=== PATIENT | male | born 1980 | race Caucasian/White ===

== ENCOUNTER 2021-01-12 16:27 | Inpatient (IN) | payer SELFPAY ==
[2021-01-12 16:32] VITALS: BP 164/110; PULSE 111; RESP 14; TEMP 36.3; O2SAT 98; BMI 20.5
--- NOTE | 2021-01-12 16:38 | ECG_ITS ---
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
[2021-01-12 17:01] VITALS: RESP 18
[2021-01-12 17:09] LABS: Basophils # 0.1 10^3/uL (0.0-0.1); Eosinophils # 0.3 10^3/uL (0.0-0.8); Eosinophils % 3.6 %; Hemoglobin 13.8 g/dL (11.7-16.6); Lymphocytes # 2.2 10^3/uL (0.8-4.8); Lymphocytes % 26.9 %; Mean Corpuscular HGB Conc 34.5 g/dL (30.0-36.0); Mean Corpuscular Hemoglobin 30.5 pg (28.0-34.0); Mean Corpuscular Volume 88.3 fL (80-94); Mean Platelet Volume 11.6 fL (7.4-10.4); Monocytes # 0.8 10^3/uL (0.2-0.9); Monocytes % 9.2 %; Neutrophils # 4.82 10^3/uL (1.8-7.7); Neutrophils % 59.1 %; Nucleated Red Blood Cells % 0 %; Platelet Count 245 10^3/cmm (130-400); Red Blood Count 4.53 10^6/uL (4.1-5.3); Red Cell Distribution Width 12.9 % (12.1-15.1); White Blood Count 8.2 10^3/uL (4.0-10.0)
[2021-01-12 17:16] VITALS: RESP 18
[2021-01-12 17:38] LABS: Alanine Aminotransferase 54 U/L (0-41); Albumin Level 4.4 g/dL (3.5-5.2); Alkaline Phosphatase 65 IU/L (40-130); Anion Gap 12.6 (5-19); Aspartate Amino Transferase 48 U/L (0-40); Blood Urea Nitrogen 7 mg/dL (6-20); Calcium 9.1 mg/dL (8.5-10.5); Carbon Dioxide 27 mmol/L (22-29); Chloride 102 mmol/L (98-107); Globulin 2.6 g/dL (1.3-4.6); Glomerular Filtration Rate 108.2 mL/min (90-130); Glucose 109 mg/dL (65-115); Osmolality Calculated 285 mOsm/kg (285-295); Potassium 3.6 mmol/L (3.5-5.1); Sodium 138 mmol/L (136-145); Thyroid Stimulating Hormone 2.53 uIU/mL (0.27-4.20); Total Bilirubin 0.8 mg/dL (0.15-1.2)
[2021-01-12 17:40] LABS: Acetaminophen < 5.0 ug/mL (10-30); Alcohol Level < 10 mg/dL (0-10); Salicylate < 0.3 mg/dL (3-10)
[2021-01-12 18:06] LABS: Amphetamines Screen Urine Positive (Negative); Barbiturates Screen Urine Negative (Negative); Benzodiazepines Screen Urine Negative (Negative); Cocaine Screen Urine Negative (Negative); Opiate Screen Urine Negative (Negative); PCP Screen Urine Negative (Negative); THC Screen Urine Positive (Negative)
[2021-01-12 18:09] LABS: Add Urine Microscopic? YES; Bilirubin Urine Neg (Negative); Blood Urine 3+ (Negative); Glucose Urine UA Norm (Normal); Ketones Urine Negative (Negative); Leukocyte Esterase Urine Negative (Negative); Nitrate Urine Negative (Negative); Protein Urine Neg (Negative); Urine Appearance Clear (CLEAR); Urine Color Yellow (Yellow); Urobilinogen Urine Norm (Negative); pH Urine 6 (5-7)
[2021-01-12 18:11] LABS: RBC Urine 25-40 /hpf (0-2); Squamous Epithelial Cell Urine 0-4 /hpf (0-5)
[2021-01-12 18:12] LABS: Add Urine Culture? Yes; Bacteria Urine 1+ /hpf; Mucus Urine TRACE /hpf
[2021-01-12 19:03] LABS: Hepatitis A Antibody IgM Non-Reactive (Nonreactive); Hepatitis B Core IgM Non-Reactive (Nonreactive); Hepatitis B Surface Antigen Non-Reactive (Nonreactive); Hepatitis C Virus Antibody Non-Reactive (Nonreactive)
[2021-01-12 22:00] VITALS: BP 149/100; PULSE 109; RESP 16; TEMP 36.7; O2SAT 98
[2021-01-13 06:41] VITALS: BP 119/75; PULSE 98; RESP 18; TEMP 36.6; O2SAT 98
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
[2021-01-13 14:00] VITALS: BP 119/81; PULSE 74; RESP 16; TEMP 36.8; O2SAT 95
[2021-01-13 20:08] VITALS: BP 118/85; PULSE 68; RESP 18; TEMP 36.8; O2SAT 97
[2021-01-14 06:00] VITALS: BP 115/71; PULSE 76; RESP 18; TEMP 36.9; O2SAT 96
[2021-01-14 14:00] VITALS: BP 132/89; PULSE 97; RESP 20; TEMP 36.4; O2SAT 97
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
[2021-01-14 20:30] VITALS: BP 143/82; PULSE 76; RESP 18; TEMP 37; O2SAT 98
--- NOTE | 2021-01-15 03:45 | PC.NURSE ---
PM Assessment V/S are normal, heart/lung sounds are WNL, PT DENIES PAIN, DENIES AH/VH, DENIES SI/HI AT THIS TIME. PT IS IN THE DAYROOM EATING.
[2021-01-15 05:25] VITALS: BP 131/98; PULSE 89; RESP 18; TEMP 36.8; O2SAT 97
[2021-01-15] MEDS: ARIPiprazole 10 mg Tablet PO (08:09)
[2021-01-15 14:00] VITALS: BP 104/69; PULSE 68; RESP 18; TEMP 37; O2SAT 97
--- NOTE | 2021-01-15 16:08 | PM.NPN ---
Subjective NPU Subjective: Interval history: Continues to be in denial with regards to the consequences of his ongoing substance use and recent events creating legal issues. Denies any interval mood symptoms, denies any depressed symptoms, denies any suicidal ideation Reports some irritability but denies any homicidal ideation, denies any thoughts about harming others Denies any psychotic symptoms, denies any auditory or visual hallucinations, denies any delusions Patient reports ongoing cannabis use but denies any methamphetamine use despite discussion of his positive urine drug screen for amphetamines although he subsequently states that he did use some for working late nights Patient currently stating that he does not like there is any problem but just needs to sort things out with his family Mental Status Exam MSE Comments: Appears stated age, unshaven, unkempt hair, wearing hospital scrubs, sitting on the edge of his bed, somewhat restless, fidgety but no agitation Speech is normal rate and volume, spontaneous, fair articulation, not pressured I am fine, constricted affect, not labile Alert and oriented to person, place, time, situation Memory and concentration are fair per interview Intellectual functioning appears to be average at best based on vocabulary, interview Thought process, linear but brief, no flight of ideas, no looseness of associations Thought content, no delusions reported, does not appear to be attending to any internal stimuli, no suicidal or homicidal ideation Insight and judgment appear to be fair Vitals/I&O/Wt Last Vital Signs Temp 98.6 F 01/15/21 14:00 Pulse 68 01/15/21 14:00 Resp 18 01/15/21 14:00 BP 104/69 01/15/21 14:00 Pulse Ox 97 01/15/21 14:00 Data NPU : 01/12/21 16:58 01/12/21 16:58 A&P Assessment and plan (1) Cannabis use disorder, mild, abuse: Status: Acute (2) Methamphetamine use: Status: Acute (3) Psychosis: Status: Acute Additional A&P Information 40-year-old male with history of polysubstance abuse with urine drug screen positive for cannabis and methamphetamine presenting with paranoid delusions, homicidal ideation with threat of harm to self and others. Currently reports improving psychotic symptoms, denies any suicidal ideation, denies any homicidal ideation. Continues to have little insight into the impact of his substance use on his current situation. CONTINUE current medication, continue to monitor Continue to coordinate with oncology social work for post discharge substance counseling/treatment Involuntary Hold Information 96 Hour Hold: 96 Hour Involuntary Admission: Yes 96 Hour Hold Ending Date: 01/12/21 96 Hour Hold Ending Time: 19:17 Attestations NPU Medical Necessity Statement*: Continues require psychiatric hospitalization for observation for return of any psychotic symptoms, homicidal ideation Coding Level of Care Code Acute Senior Professional Services Consultant for joan Fwd Diagnoses Cannabis use disorder, mild, abuse F12.10 Methamphetamine use F15.10 Psychosis F29
[2021-01-15 22:00] VITALS: BP 111/65; PULSE 64; RESP 16; TEMP 36.4; O2SAT 98
[2021-01-16 06:00] VITALS: BP 86/58; PULSE 66; RESP 16; TEMP 36.4; O2SAT 97
[2021-01-16] MEDS: ARIPiprazole 10 mg Tablet PO (08:27)
--- NOTE | 2021-01-16 13:14 | PM.NDC ---
Diagnoses at Discharge Discharge Diagnosis (1) Cannabis use disorder, mild, abuse: Status: Acute (2) Methamphetamine use: Status: Acute (3) Psychosis: Status: Acute Reason for Visit Reason for Visit: 96 hour warrant/with officer Hospital Course Hospital Course Patient admitted to inpatient psychiatry unit for odd behavior which appeared to be under the influence of methamphetamine, cannabis. 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 Patient quickly reconstituted and was started on Abilify 10 mg daily with no reports of any medication side effects. Patient denied any subsequent psychotic symptoms, denied any auditory or visual hallucinations and denied any delusions. Patient also did not endorse any homicidal ideation or thoughts about harming others and had no recollection of his actions or statements prior to his admission. At no time did he demonstrate any disorganization of thoughts, speech or behavior during his hospital stay. He reported intermittent depressive symptoms mostly in the context of ongoing, acute stressors but denied any suicidal ideation or thoughts about self-harm. He participated in unit milieu and did not have any behavioral disturbances. At the time of discharge, he denied any suicidal ideation and did not appear to pose an imminent threat of harm to self or others. Low to moderate risk of harm to self or others given no current suicidal or homicidal ideation and no report of any psychiatric symptoms although patient's risk may be elevated if he continues to use illicit substances causing an abrupt, unexpected and impulsive behavior. Risk mitigation included psychiatric hospitalization for observation of any persisting psychotic symptoms, medication stabilization as well as recommending abstaining from the use of substances and alcohol. Patient was able to communicate his understanding of the need to abstain from the use of substances and alcohol as well as the need for compliance with his medication, medication management and substance counseling/treatment in order to further mitigate his risk of harm to self and others. Involuntary Hold Information 96 Hour Hold: 96 Hour Involuntary Admission: Yes 96 Hour Hold Ending Date: 01/12/21 96 Hour Hold Ending Time: 19:17 Mental Status Exam MSE Comments: Unkempt hair, unshaven, appropriately dressed in hospital scrubs, calm, cooperative, good eye contact Psychomotor activity is neither increased nor decreased, no agitation Speech is normal rate, low volume, spontaneous, clear articulation, not pressured I feel better, full range, not labile Alert and oriented to person, place, time, situation Memory and concentration appear to be intact per interview Thought process, linear, no flight of ideas, no looseness of associations Thought content, no delusions, no hallucinations, no suicidal ideation, no homicidal ideation Insight and judgment appear to be intact Discharge Data Vitals: Last Vital Signs Temp 97.6 F 01/16/21 06:00 Pulse 66 01/16/21 06:00 Resp 16 01/16/21 06:00 BP 86/58 01/16/21 06:00 Pulse Ox 97 01/16/21 06:00 Discharge Plan Discharge Patient Disposition: Home Condition: Stable Prescriptions: New aripiprazole 10 mg Tablet 10 mg PO DAILY Qty: 30 RF: 0 Discharge Orders: Discharge Order (Routine); Ordered 01/16/21 Ordered By: Mayuri Mendoza Referrals: [facility] [Outside] (Intake paperwork was completed while in the hospital. They will contact you once processed for an assessment time.) [facility] [Outside] (Resource for inpatient or outpatient substance abuse treatment. DFS may require your attendance but speak to your watch caser about that.) Discharge Diet: Regular Discharge Activity: Resume usual activity Discharge Attestations NPU Time Spent in Discharge Care*: greater than 30 min Status at Discharge: Cognitive status at discharge: cognitively intact, Behavioral status at discharge: cooperative, Functional status at discharge: independent ambulation Overall status at discharge: patient is back to baseline Coding Level of Care Code Acute Clinical Specialist Medical Device for Sienna Willoughby Diagnoses Cannabis use disorder, mild, abuse F12.10 Methamphetamine use F15.10 Psychosis F29
[2021-01-16 13:20] VITALS: BP 86/58; PULSE 66; RESP 16; TEMP 36.4; O2SAT 97
== END 2021-01-16 13:55 | disposition home or self-care (01) | DRG 885 ==
LOC: ER 16:37 → NP 19:40
PROVIDERS: Admitting Provider Psychiatry & Neurology Psychiatry; Emergency Provider Family Medicine; Visit Provider Psychiatry & Neurology Psychiatry
DX: F23 Brief psychotic disorder (principal); F15.90 Other stimulant use, unspecified, uncomplicated; F12.10 Cannabis abuse, uncomplicated; Z62.820 Parent-biological child conflict; R45.850 Homicidal ideations
CPT/HCPCS: 80053; 80074; 80306; 80307; 81001; 84443; 85025; 87086; 93005; 99285

== ENCOUNTER 2021-06-29 21:04 | Emergency (ER) | payer SELFPAY ==
--- NOTE | 2021-06-29 21:18 | XRR_ITS ---
PROCEDURE INFORMATION: Exam: XR Abdomen Exam date and time: 06/29/2021 9:18 PM Age: 41 years old Clinical indication: Other: Rectal fb; Patient HX: Apple in rectum TECHNIQUE: Imaging protocol: XR of the abdomen. Views: 2 Views. Upright and supine views. COMPARISON: No relevant prior studies available. FINDINGS: Gastrointestinal tract: Normal. No bowel dilation. Intraperitoneal space: Normal. No free air. Bones/joints: Unremarkable for age. XR/XR acute abdomen series [id number] IMPRESSION: Negative for bowel dilation, air-fluid levels or radiodense foreign body.
[2021-06-29 22:11] VITALS: BP 154/106; PULSE 96; RESP 16; TEMP 36.9; O2SAT 96; BMI 20.5
--- NOTE | 2021-06-29 22:38 | CTR_ITS ---
PROCEDURE INFORMATION: Exam: CT Abdomen And Pelvis Without Contrast Exam date and time: 06/29/2021 10:38 PM Age: 41 years old Clinical indication: Screening exam; Other: Fb; Patient HX: PT stuck an apple up his rectum; Additional info: Fb rectum abd pain TECHNIQUE: Imaging protocol: Computed tomography of the abdomen and pelvis without contrast. Radiation optimization: All CT scans at this facility use at least one of these dose optimization techniques: automated exposure control; mA and/or kV adjustment per patient size (includes targeted exams where dose is matched to clinical indication); or iterative reconstruction. COMPARISON: CR (ABDOMEN, ) 06/29/2021 11:04 PM RADIATION DOSE METRICS: Total DLP (mGy-cm): 852.15 FINDINGS: Liver: Normal. No mass. Gallbladder and bile ducts: Normal. No calcified stones. No ductal dilation. Pancreas: Normal. No ductal dilation. Spleen: Normal. No splenomegaly. Adrenal glands: Normal. No mass. Kidneys and ureters: Incidental finding of a circumscribed hyperdense left renal lower pole cortical lesion measuring 2 cm x 2.1 cm which is incompletely characterized on noncontrast imaging; favor proteinaceous cyst. Recommend non emergent outpatient renal ultrasound characterization. Stomach and bowel: Large round predominantly lucent foreign body expands the rectum. The object measures 7.1 cm cc by 6.7 cm AP x 7 cm transverse. No inflammatory bowel wall thickening. Negative for bowel pneumatosis. No significant dilation of small bowel loops or large bowel loops proximal to the object. Appendix: No evidence of appendicitis. Intraperitoneal space: Unremarkable. No free air. No significant fluid collection. Vasculature: Unremarkable. No abdominal aortic aneurysm. Lymph nodes: Unremarkable. No enlarged lymph nodes. Urinary bladder: Unremarkable as visualized. Reproductive: Unremarkable as visualized. Bones/joints: Unremarkable. No acute fracture. Soft tissues: Unremarkable. CT/CT abdomen pelvis wo con [id number] IMPRESSION: Large round rectal foreign body. The shape is consistent with an apple.. COMMENTS: Consistent with the [employer]'s Incidental Findings Committee white paper (J Am Yen Radiol 2018): Any incidental renal lesion less than 1 cm or classified as too small to characterize, or any incidental cystic renal lesion characterized as simple-appearing, is likely benign. No follow-up imaging is recommended for these lesions per consensus recommendations based on imaging criteria. Radiation Dose CTDIVOL = (mGy): DLP = 852.15 (mGy-cm)
== END 2021-06-30 02:39 ==
PROVIDERS: Emergency Provider Family Medicine
DX: T18.5XXA Foreign body in anus and rectum, initial encounter (principal); Z53.21 Procedure and treatment not carried out due to patient leaving prior to being seen by health care provider
CPT/HCPCS: 74022; 74176